=== PATIENT | female | born 1965 | race Caucasian/White ===

== ENCOUNTER → 2021-11-01 | Outpatient (CLI) | payer OTHER ==
[2021-11-01 13:50] VITALS: BP 163/92; PULSE 68; RESP 16; TEMP 98.5; BMI 39.7
== END ==
LOC: BARWHC3 13:22
PROVIDERS: ATTEND Surgery
DX: Z09 Encounter for follow-up examination after completed treatment for conditions other than malignant neoplasm (principal); E78.5 Hyperlipidemia, unspecified; I25.2 Old myocardial infarction; Z98.84 Bariatric surgery status; Z87.891 Personal history of nicotine dependence
CPT/HCPCS: 99212

== ENCOUNTER → 2021-11-08 | Outpatient (CLI) | payer OTHER ==
[2021-11-08 13:09] VITALS: BP 141/85; PULSE 52; RESP 16; TEMP 98.3; BMI 40.1
--- NOTE | 2021-11-08 15:44 | P.HPBAR ---
Bariatric H&P - History & Physicial H&P Date: 11/08/21 History & Physicial: Visit/CC: lap band f/u Patient initial contact: Initial weight: Initial weight in pounds: Height: 4 ft 11 in Initial BMI: Last weight: Current weight: 90.265 kg Current weight in pounds: 199.00 Current BMI: 40.1 Amelia body weight (based on NIH guidelines): 43.091 kg Excess body weight loss: The patient is a 55 year-old F who presents for Bariatric Assessment. Patient presents today for bariatric follow-up. She is requesting a fill of her band. She currently feels hungry. Her [place]upe is rigid done in 2002. Past Medical History Past Medical History: Hyperlipidemia, Myocardial Infarction (NE) Last Myocardial Infarction Date:: 2018 History of Any Multi-Drug Resistant Organisms: None Reported Past Surgical History: Bariatric Surgery, Heart Catheterization With Stent Additional Past Surgical History / Comment(s): lap band Past Anesthesia/Blood Transfusion Reactions: No Reported Reaction Date of Last Stent Placement:: 2018 Past Psychological History: No Psychological Hx Reported Smoking Status: Former smoker, Vaper Past Alcohol Use History: Occasional Additional Past Alcohol Use History / Comment(s): "couple times a week" Past Drug Use History: Marijuana Additional Drug Use History / Comment(s): Occasional Surgical - Exam Vital Signs Temp Pulse Resp BP 98.3 F 52 L 16 141/85 11/08/21 13:06 11/08/21 13:06 11/08/21 13:06 11/08/21 13:06 - General well developed, well nourished, no distress - Eyes PERRL - ENT normal pinna - Neck no masses - Respiratory normal expansion - Cardiovascular Rhythm: regular - Abdomen Abdomen: soft, non tender Bariatric Assessment & Plan Plan: Patient LAP-BAND was just. She had 0.3 mL added to the band. She currently is 4 mL band. She will follow-up in 4 weeks. Bariatric Checklist Checklist: Plan: Checklist: EGD: 1. Hiatal hernia: 2. H. Pylori: HgbA1c: Vitamin D: Smoking: Primary care physician referral: Psychiatry clearance: Cardiology clearance: Sleep study: Diet journal: VTE risk score: VTE risk level: Rehab needs at discharge:
== END ==
LOC: BARWHC3 12:52
PROVIDERS: ATTEND Surgery
DX: Z46.51 Encounter for fitting and adjustment of gastric lap band (principal); E78.5 Hyperlipidemia, unspecified; I25.2 Old myocardial infarction; Z87.891 Personal history of nicotine dependence; Z88.5 Allergy status to narcotic agent
CPT/HCPCS: 99212